=== PATIENT | male | born 1975 | race Caucasian/White ===

== ENCOUNTER 2022-02-27 13:59 | Outpatient (REF) | payer BC, SELFPAY ==
--- NOTE | ~2022-02-27 | MR_ITS ---
EXAMINATION: MR BRAIN WITHOUT AND WITH CONTRAST CLINICAL INFORMATION: Left hearing loss COMPARISON: None TECHNIQUE: Multiplanar multisequence MR imaging of the brain was obtained without and following the administration of 10 mL Gadavist intravenous contrast. FINDINGS: The 7th and 8th cranial nerve complexes are symmetric in course, caliber, and enhancement characteristics. Major inner ear structures including the cochlea, semicircular canals, and vestibule are symmetric in morphology and demonstrate normal CSF signal. No enhancing intracanalicular or cerebellopontine angle mass lesion is visualized. There is no acute infarct on diffusion-weighted imaging. There is no intracranial hemorrhage on iron-sensitive imaging. No extra-axial collection or mass effect/herniation. There are several scattered foci of nonspecific supratentorial white matter T2/FLAIR signal abnormality. No hydrocephalus. The ventricles are normal in morphology and size. No abnormal parenchymal or extra-axial enhancement. The major flow voids at the skull base are preserved. The midline structures are normal. The cerebellar tonsils are normally positioned. The craniocervical junction is normal. Marrow signal is within normal limits. The visualized soft tissues are without significant abnormality. No signal abnormality within the paranasal sinuses or within the mastoid air cells. MR/MR head/brain wo/w con IMPRESSION: 1. No evidence of retrocochlear pathology. 2. Few scattered foci of supratentorial white matter T2/FLAIR signal abnormality are nonspecific but can be seen in the setting of chronic microvascular ischemia or migraine headache.
== END 2022-02-27 14:00 | disposition home or self-care (01) ==
LOC: HO.MRI 13:59
PROVIDERS: Visit Provider Otolaryngology
DX: H90.42 Sensorineural hearing loss, unilateral, left ear, with unrestricted hearing on the contralateral side (principal); D33.3 Benign neoplasm of cranial nerves
CPT/HCPCS: 70553; A9585

== ENCOUNTER 2024-08-07 09:07 | Outpatient (REF) | payer BC, SELFPAY ==
[2024-08-07 13:03] LABS: MANUAL DIFF FLAG NO
[2024-08-07 13:26] LABS: Basophils Percent Auto 0.7 % (0-2); Eosinophils Absolute Auto 0.2 X10*3/uL (0.0-0.4); Eosinophils Percent Auto 2.8 % (0-4); Hematocrit 48.8 % (42.0-52.0); Hemoglobin 16.1 g/dl (14.0-18.0); Imm Gran Abs Auto 0.01 X10*3/uL (0.00-0.03); Imm Gran Pct Auto 0.2 % (0.0-0.4); Lymphocytes Absolute Auto 1.6 X10*3/uL (1.2-4.9); Lymphocytes Percent Auto 28.6 % (20-40); Mean Corpuscular Hemoglobin 28.5 pg (27.0-33.0); Mean Corpuscular Volume 86.5 fL (80.0-98.0); Mean Platelet Volume 10.7 fL (9.4-12.4); Monocytes Absolute Auto 0.5 X10*3/uL (0.1-1.2); Monocytes Percent Auto 9.1 % (2-11); Neutrophils Absolute Auto 3.3 x10*3/uL (2.0-8.3); Neutrophils Percent Auto 58.6 % (45-73); Platelet Count 294 X10*3/uL (160-400); Red Blood Count 5.64 X10*6/uL (4.60-5.80); Red Cell Distribution Width 13.1 % (11.0-16.0); White Blood Count 5.6 X10*3/uL (4.8-10.8)
[2024-08-07 13:29] LABS: Alanine Aminotransferase 23 U/L (0-40); Albumin Level 4.3 g/dL (3.5-5.0); Alkaline Phosphatase 59 U/L (39-117); Anion Gap 14 (12-20); Aspartate Amino Transferase 23 U/L (5-37); Bilirubin Direct 0.1 mg/dL (0.0-0.5); Bilirubin Total 0.4 mg/dL (0.0-1.0); Blood Urea Nitrogen 13 mg/dL (9-16); C Reactive Protein 0.48 mg/dL (< or = 0.50); Calcium 9.3 mg/dL (8.4-10.2); Carbon Dioxide 28 mmol/L (22-29); Chloride 104 mmol/L (96-108); Cholesterol 177 mg/dL (<200); Estimated Glomerular Filt Rate > 60; Glucose Fasting 102 mg/dL (60-99); HDL Cholesterol 37 mg/dL (>40); LDL Cholesterol Calculated 119 mg/dL (<100); Magnesium 2.4 mg/dL (1.6-2.6); Potassium 4.6 mmol/L (3.3-5.1); Sodium 141 mmol/L (135-145); Total Protein 7.7 g/dL (6.5-8.0); Triglycerides 106 mg/dL (<150)
[2024-08-07 13:31] LABS: Estimated Average Glucose 117 mg/dL; Hemoglobin A1C 162.5293 umol/L; Hemoglobin A1c % 5.7 % (<6.0); Total Hemoglobin (HGBA1C) 4176.2217 umol/L
[2024-08-07 13:45] LABS: PSA,Total (Free>4and<10) 2.66 ng/mL (0.00-4.00)
[2024-08-07 13:48] LABS: TSH reflex Free T4 2.21 uIU/mL (0.32-4.0); Vitamin D 25-OH Total 32.1 ng/mL (>30)
[2024-08-07 13:58] LABS: Folate 4.8 ng/mL (> or = 4.0); Vitamin B12 426 pg/mL (200-900)
[2024-08-07 14:14] LABS: Erythrocyte Sedimentation Rate 5 MM/HR (0-15)
== END 2024-08-07 09:08 | disposition home or self-care (01) ==
LOC: HO.HMGCLDS 09:07
PROVIDERS: PCP Internal Medicine; Visit Provider Physician Assistant Medical
DX: Z76.89 Persons encountering health services in other specified circumstances (principal); I10 Essential (primary) hypertension; E66.3 Overweight; G47.33 Obstructive sleep apnea (adult) (pediatric); E78.00 Pure hypercholesterolemia, unspecified; G62.9 Polyneuropathy, unspecified; K64.9 Unspecified hemorrhoids; Z12.5 Encounter for screening for malignant neoplasm of prostate; Z13.1 Encounter for screening for diabetes mellitus
CPT/HCPCS: 36415; 80053; 80061; 80076; 82248; 82306; 82607; 82746; 83036; 83735; 84153; 84443; 85025; 85652; 86140; 96127

== ENCOUNTER 2024-08-07 09:07 | Outpatient (AMB) | payer BC, SELFPAY ==
--- NOTE | 2024-08-07 09:18 | MHC.PC.OV ---
Vital Signs 08/07/24 09:26 Height 6 ft 4 in Weight 229 lb BMI 27.9 BP 144/80 H Respiration 16 Pulse 62 Pulse Source Pulse Oximeter Temp 97.8 F Temp Source Temporal Artery Scan Pulse Oximetry (%) 94 Oxygen Delivery Method Room Air Intake Visit Reasons: establish care Drying Room Supervisor Required: No Accompanied by: Self / Same As Patient Allergies No Known Allergies Allergy (Verified 08/07/24 09:46) Medication List - Last Reconciled 08/07/24 by Angelina Montes PA-C No Known Home Meds Tobacco use date assessed: 08/07/24 Dental Screening Dental Screen Date: 08/07/24 Did you have a dental visit in the last 12 months?: Yes Did you have a dental problem in the last 6 months where you did not have access to dental care?: No Was dental information given to patient?: Patient has dentist HPI establish care HPI Details The patient is a 49-year-old male presenting to [facility], with a primary focus on management of hypertension and hyperlipidemia. He reports elevated blood pressure readings generally above 140 mmHg systolic. Historical data suggests that both cholesterol and blood pressure have been of concern, with the need for updated examinations and possible medical intervention. The patient describes sporadic episodes of blood in stools aligned with bowel straining, positing the possible presence of hemorrhoids. Family history reveals significant cancer occurrence, necessitating preventive screenings. He reports neuropathy-like symptoms in his feet, predominantly at night, suspecting his occupation contributing to the problem, as his work involves wearing high boots. This sensory disturbance is not mentioned to impact daily functionality. Social History - Employment: Full-time at the [employer], occupation involves wearing heavy footwear - Family Status: , discussions inclusive of spouse - Nutrition: Enjoys high-salt and high-fat foods, including fried foods and cheese - Lifestyle: Reports high intake of salty and fatty foods - Risk Factors: Family history of cancer affecting both male and female relatives [facility] Medical History Neuropathy Hemorrhoid Establishing care with new doctor, encounter for Hypercholesteremia Overweight with body mass index (BMI) of 27 to 27.9 in adult Hypertension LOTUS (obstructive sleep apnea) Family History Mother Cancer Stomach cancer BP (high blood pressure) Father Heart attack BP (high blood pressure) Social History Housing: House Alcohol intake: current Alcohol intake frequency: holidays/special occasions only Patient Tobacco Use Status: Never used Tobacco service: No Current occupational status: employed Cognitive needs: No Hearing needs: Yes (left ear hearing aid) Vision needs: Yes (reading glasses) Questionnaire PHQ-9 Over the last 2 weeks, how often have you been bothered by any of the following problems? 1. Little interest or pleasure in doing things: not at all 2. Feeling down, depressed, or hopeless: not at all 3. Trouble falling or staying asleep, or sleeping too much: not at all 4. Feeling tired or having little energy: not at all 5. Poor appetite or overeating: not at all 6. Feeling bad about yourself - or that you are a failure or have let yourself or your family down: not at all 7. Trouble concentrating on things, such as reading the newspaper or watching television: not at all 8. Moving or speaking so slowly that other people could have noticed. Or the opposite - being so fidgety or restless that you have been moving around a lot more than usual: not at all 9. Thoughts that you would be better off or of hurting yourself in some way: not at all Total score: 0 Depression Screening Interpretation: Negative Depression Screening Done: Yes 60283 - PHQ-9 Billing: Yes Source: Developed by Drs. Aguilar Ambrosio, Angely Wadsworth, Francois Barroso and colleagues, with an educational mattie from [employer]. Thrive Questionnaire Date Thrive assessed: 08/07/24 I am a: Patient What is your living situation today?: I have a steady place to live Within the past 12 months, did the food you bought not last and you didn't have the money to get more?: Never true Within the past 12 months, did you worry whether your food would run out before you got money to buy more?: Never true Do you have trouble paying for medicines?: No Do you have trouble getting transportation to medical appointments?: No Do you have trouble paying your heating and electricity bill?: No Do you have trouble taking care of your child, family member or friend?: No Do you have trouble with day-to-day activities such as bathing, preparing meals, shopping, managing finances, etc.?: No Are you currently unemployed and looking for a job?: No Are you interested in more education?: No Please select the resources that you would like help with: None THRIVE Score: 0 AUDIT C Alcohol Use Questionnaire (AUDIT-C) 1. How often do you have a drink containing alcohol?: Monthly or less 2. How many drinks containing alcohol do you have on a typical day when you are drinking?: 1 or 2 3. How often do you have six or more drinks on one occasion?: Never Total Score: 1 Score Reviewed/Action Taken: No SILVINA-7 AMB Questionnaire SILVINA-7 Date SILVINA - 7 assessed: 08/07/24 Feeling nervous, anxious, or on edge: 0 = Not at all Not being able to stop or control worryin = Not at all Worrying too much about different things: 0 = Not at all Trouble relaxin = Not at all Being so restless that it is hard to sit still: 0 = Not at all Becoming easily annoyed or irritable: 0 = Not at all Feeling afraid as if something awful might happen: 0 = Not at all Total SILVINA-7 score (0-4 normal; 5-9 mild; 10-14 moderate; 15-21 severe): 0 Source: Developed by Drs. Aguilar Ambrosio, Angely Wadsworth, Francois Barroso and colleagues, with an educational mattie from [employer]. SILVINA-7 Assessment Billing SILVINA-7 Assessment Tool: SILVINA-7 Assessment 48408 Review of Systems Const Details: - Cardiovascular: Reports elevated blood pressure readings. - Gastrointestinal: Reports intermittent blood in stools; denies black stools or changes in bowel habits. - Respiratory: Denies chest pain or shortness of breath with activity. - Neurological: Reports decreased sensation in extremities, particularly feet. - Renal/Urinary: Denies changes in urination. Physical exam (Primary Care) Vital Signs: Last Vital Signs Temp 97.8 F 08/07/24 09:26 Pulse 62 08/07/24 09:26 Resp 16 08/07/24 09:26 BP 144/80 H 08/07/24 09:26 Pulse Ox 94 08/07/24 09:26 Oxygen Delivery Method Room Air 08/07/24 09:26 Care Plan Goal for BP management: <130/90 patient will be started on lisinopril 10 mg and return in 1 month for blood pressure check with a blood pressure diary BMI result Body Mass Index 27.9 BMI Assessment/Plan discussion: High BMI High, discussed plan: lifestyle, weight reduction, dietary, physical activity and alcohol moderation Tobacco/Smoking Status: Tobacco use Status Tobacco use date assessed 08/07/24 08/07/24 09:20 Patient Tobacco Use Status Never used Tobacco 08/07/24 09:32 PHQ-9: PHQ-9 Score PHQ-9: Total score 0 08/07/24 09:41 Depression Screening Interpretation: Negative Thrive Assessment: Date of Thrive Assessment Date Thrive assessed 08/07/24 08/07/24 09:20 Const Other: Appearance: Alert. Oriented X3. No acute distress. Head: Normal external exam. Normocephalic. Atraumatic. Eyes: Pupils are equal, round, and reactive to light. Extraocular movements intact. Conjunctiva and sclera normal. Eyelids normal. Ears: External auditory canal normal. Tympanic membranes normal. Decreased hearing in the left ear. Throat: Pharynx normal. Uvula midline. Moist mucous membranes. Neck: Normal inspection. Neck supple. Full range of motion. No adenopathy. Thyroid Normal. No meningeal signs. No neck mass noted. Cardiovascular: Normal heart rate and rhythm. Heart sound normal. No murmurs noted. Pulses normal throughout. Blood pressure is 144/80, indicating stage 1 hypertension. Respiratory: No respiratory distress. Painless inspiration. Breath sounds normal. No wheezes/rales/rhonchi noted. Chest nontender. No accessory muscle usage noted or decreased air movement noted. Abdomen: Soft and nontender. Bowel sounds normal in all 4 quadrants. No distention noted. No organomegaly noted. No visible injury noted. Reports occasional blood in stool, likely due to hemorrhoids. Back: No costovertebral angle tenderness. Full range of motion noted. Skin: Skin warm and dry. Normal skin color. Normal skin turgor. No rashes/lesions/lacerations noted. Extremities: No lower extremity edema. Extremities exhibit normal range of motion. Extremities nontender. Reports occasional numbness in toes and heels, possibly neuropathy. Neuro: Oriented X 3. No motor deficit. No sensory deficit. Reflexes normal. Reports occasional numbness in toes and heels, possibly neuropathy. Coding Level of Care Code New Pt Level 4 (39559) Complex EM visit Add On G2211 Diagnoses Establishing care with new doctor, encounter for Z76.89 Hypertension I10 Overweight with body mass index (BMI) of 27 to 27.9 in adult E66.3; Z68.27 LOTUS (obstructive sleep apnea) G47.33 Hypercholesteremia E78.00 Neuropathy G62.9 Hemorrhoid K64.9 Additional Codes SILVINA-7 Assessment Billing - SILVINA-7 Assessment Tool: SILVINA-7 Assessment 97034 ([id number]) PHQ-9 - 72572 - PHQ-9 Billing: Yes ([id number]) Assessment & Plan Assessment & Plan (1) Establishing care with new doctor, encounter for: Code(s): Z76.89 - Persons encountering health services in other specified circumstances Category: Medical (2) Hypertension: Code(s): I10 - Essential (primary) hypertension Category: Medical Plan: The patient will begin lisinopril 10 mg daily, with home monitoring of blood pressure advised. Follow-up in one month will assess treatment impact and adjustment needs. Condition is chronic and stable continue to monitor. (3) Overweight with body mass index (BMI) of 27 to 27.9 in adult: Code(s): E66.3 - Overweight; Z68.27 - Body mass index [BMI] 27.0-27.9, adult Category: Medical Plan: Patient will improve his diet and exercise regimen. Condition is chronic and stable continue to monitor. (4) LOTUS (obstructive sleep apnea): Code(s): G47.33 - Obstructive sleep apnea (adult) (pediatric) Category: Medical Plan: Will order a sleep study test. Condition is chronic and stable continue to monitor. (5) Hypercholesteremia: Code(s): E78.00 - Pure hypercholesterolemia, unspecified Category: Medical Plan: Blood testing will clarify cholesterol status. Dietary changes are recommended focusing on lower salt and fat. A cholesterol-lowering medication may be initiated based on results. Condition is chronic and stable continue to monitor. (6) Neuropathy: Code(s): G62.9 - Polyneuropathy, unspecified Category: Medical Plan: Additional blood tests will ensure diabetic causes are excluded. Symptoms managed by possible gabapentin consideration if symptomatic relief is needed. Condition is chronic and stable will continue to monitor. (7) Hemorrhoid: Code(s): K64.9 - Unspecified hemorrhoids Category: Medical Plan: Initial conservative management recommended includes dietary fiber and fluid increase to manage occasional blood in stool associated with straining. Condition is chronic and stable will continue to monitor. Plan Plan Patient was informed and verbally consented to the use of an ambient scribe for clinic note documentation during this visit. 1. Essential Hypertension The patient will begin lisinopril 10 mg daily, with home monitoring of blood pressure advised. Follow-up in one month will assess treatment impact and adjustment needs. 2. Hyperlipidemia Blood testing will clarify cholesterol status. Dietary changes are recommended focusing on lower salt and fat. A cholesterol-lowering medication may be initiated based on results. 3. Family History Of Cancer Referral to Gastroenterology for a colonoscopy to examine familial cancer risk is planned, supporting early detection and management strategy. 4. Possible Hemorrhoids Initial conservative management recommended includes dietary fiber and fluid increase to manage occasional blood in stool associated with straining. 5. Neuropathy Additional blood tests will ensure diabetic causes are excluded. Symptoms managed by possible gabapentin consideration if symptomatic relief is needed. I discussed with the patient the management of his essential hypertension and proposed beginning lisinopril to lower his blood pressure, explaining its benefits and monitoring plan. Blood tests for hyperlipidemia were ordered to evaluate current cholesterol levels; results will inform any need for pharmacological treatment. We reviewed his family history of cancer, agreeing on a referral for a colonoscopy to explore potential hereditary risks. We explored possible hemorrhoids, with advice on lifestyle changes to aid stool passage. For sensory disturbances in his feet, I highlighted monitoring and possible treatment options post-evaluation. I advised follow-up in one month to re-evaluate blood pressure management and review blood test outcomes. Orders: Orders Complete Blood Count Auto Diff Today Z00.00 - Encounter for general adult medical examination without abnormal findings Hemoglobin A1c Today Z00.00 - Encounter for general adult medical examination without abnormal findings Lipid Panel Today Z00.00 - Encounter for general adult medical examination without abnormal findings Liver Panel Today Z00.00 - Encounter for general adult medical examination without abnormal findings Vitamin D 25-OH Total Today Z00.00 - Encounter for general adult medical examination without abnormal findings Comprehensive [place]. Panel Fast Today Z00.00 - Encounter for general adult medical examination without abnormal findings C Reactive Protein Today Z00.00 - Encounter for general adult medical examination without abnormal findings Erythrocyte Sedimentation Rate Today Z00.00 - Encounter for general adult medical examination without abnormal findings Magnesium Today Z00.00 - Encounter for general adult medical examination without abnormal findings Vitamin B12 and Folate Today Z00.00 - Encounter for general adult medical examination without abnormal findings PSA,Total (Free>4and<10) Today Z00.00 - Encounter for general adult medical examination without abnormal findings TSH reflex Free T4 Today Z00.00 - Encounter for general adult medical examination without abnormal findings RT home sleep study Today G47.33 - Obstructive sleep apnea (adult) (pediatric) Referrals Gastroenterology Referral Z12.11 - Encounter for screening for malignant neoplasm of colon Medications: New lisinopril 10 mg PO DAILY 30 tabs 0RF I10 - Essential (primary) hypertension Patient Instructions: - Begin taking lisinopril 10 mg daily for high blood pressure. - Monitor your blood pressure at home two hours after taking medication and note down the readings. - Schedule a colonoscopy with Gastroenterology as referred. - Increase fiber and fluid intake to ease bowel movements and manage hemorrhoid symptoms. - Have blood tests done as instructed; follow fasting requirements before testing. - Return in one month for a follow-up appointment to review blood pressure and test results.
[2024-08-07 09:26] VITALS: BP 144/80; PULSE 62; RESP 16; TEMP 36.6; O2SAT 94; BMI 27.9
== END 2024-08-07 10:13 | disposition home or self-care (01) ==
LOC: HO.HMCSH 09:07
PROVIDERS: PCP Internal Medicine; Visit Provider Physician Assistant Medical
DX: Z76.89 Persons encountering health services in other specified circumstances (principal); I10 Essential (primary) hypertension; E66.3 Overweight; Z68.27 Body mass index [BMI] 27.0-27.9, adult; G47.33 Obstructive sleep apnea (adult) (pediatric); E78.00 Pure hypercholesterolemia, unspecified; G62.9 Polyneuropathy, unspecified; K64.9 Unspecified hemorrhoids

== ENCOUNTER 2024-09-06 09:26 | Outpatient (AMB) | payer BC, SELFPAY ==
--- NOTE | 2024-09-06 09:40 | MHC.PC.OV ---
Vital Signs 09/06/24 09:41 Height 6 ft 4 in Weight 229 lb BMI 27.9 BP 130/80 Respiration 12 Pulse 72 Pulse Source Pulse Oximeter Temp 97.9 F Temp Source Temporal Artery Scan Pulse Oximetry (%) 99 Oxygen Delivery Method Room Air Intake Visit Reasons: 1 month follow up Physician Office Nurse Required: No Accompanied by: Self / Same As Patient Allergies No Known Allergies Allergy (Verified 09/06/24 10:06) Medication List - Last Reconciled 09/06/24 by Angelina Montes PA-C lisinopril 10 mg PO DAILY rosuvastatin (Crestor) 10 mg PO BEDTIME Tobacco use date assessed: 09/06/24 Dental Screening Dental Screen Date: 08/07/24 HPI 1 month follow up HPI Details The patient is a 49-year-old male presenting with a request for a blood pressure check. He has a history of essential hypertension, currently managed with lisinopril 10 mg, which he has been taking regularly without any adverse effects. His blood pressure is well-controlled, as evidenced by a normal reading during today's visit. The patient has two tablets remaining, indicating a need for a prescription refill. In addition, the patient has hyperlipidemia and is on Crestor (rosuvastatin), with a supply for 90 days. He is making lifestyle modifications, including improved diet and increased physical activity, which may impact his condition management. Social History - Exercises regularly, has started going to the gym. - Reports eating healthier as part of lifestyle modifications. - Employment requires wearing heavy boots and a belt, possibly affecting weight assessment. [facility] Medical History Neuropathy Hemorrhoid Establishing care with new doctor, encounter for Hypercholesteremia Overweight with body mass index (BMI) of 27 to 27.9 in adult Hypertension LOTUS (obstructive sleep apnea) Family History Mother Cancer Stomach cancer BP (high blood pressure) Father Heart attack BP (high blood pressure) Social History Housing: House Alcohol intake: current Alcohol intake frequency: holidays/special occasions only Patient Tobacco Use Status: Never used Tobacco service: No Current occupational status: employed Cognitive needs: No Hearing needs: Yes (left ear hearing aid) Vision needs: Yes (reading glasses) Questionnaire PHQ-9 Over the last 2 weeks, how often have you been bothered by any of the following problems? 1. Little interest or pleasure in doing things: not at all 2. Feeling down, depressed, or hopeless: not at all 3. Trouble falling or staying asleep, or sleeping too much: not at all 4. Feeling tired or having little energy: not at all 5. Poor appetite or overeating: not at all 6. Feeling bad about yourself - or that you are a failure or have let yourself or your family down: not at all 7. Trouble concentrating on things, such as reading the newspaper or watching television: not at all 8. Moving or speaking so slowly that other people could have noticed. Or the opposite - being so fidgety or restless that you have been moving around a lot more than usual: not at all 9. Thoughts that you would be better off or of hurting yourself in some way: not at all Total score: 0 Depression Screening Interpretation: Negative Depression Screening Done: Yes 89403 - PHQ-9 Billing: Yes Source: Developed by Drs. Aguilar Ambrosio, Angely Wadsworth, Francios Barroso and colleagues, with an educational mattie from [employer]. Thrive Questionnaire Date Thrive assessed: 08/07/24 I am a: Patient What is your living situation today?: I have a steady place to live Within the past 12 months, did the food you bought not last and you didn't have the money to get more?: Never true Within the past 12 months, did you worry whether your food would run out before you got money to buy more?: Never true Do you have trouble paying for medicines?: No Do you have trouble getting transportation to medical appointments?: No Do you have trouble paying your heating and electricity bill?: No Do you have trouble taking care of your child, family member or friend?: No Do you have trouble with day-to-day activities such as bathing, preparing meals, shopping, managing finances, etc.?: No Are you currently unemployed and looking for a job?: No Are you interested in more education?: No Please select the resources that you would like help with: None THRIVE Score: 0 AUDIT C Alcohol Use Questionnaire (AUDIT-C) 1. How often do you have a drink containing alcohol?: Monthly or less 2. How many drinks containing alcohol do you have on a typical day when you are drinking?: 1 or 2 3. How often do you have six or more drinks on one occasion?: Never Total Score: 1 Score Reviewed/Action Taken: No SILVINA-7 AMB Questionnaire SILVINA-7 Date SILVINA - 7 assessed: 08/07/24 Feeling nervous, anxious, or on edge: 0 = Not at all Not being able to stop or control worryin = Not at all Worrying too much about different things: 0 = Not at all Trouble relaxin = Not at all Being so restless that it is hard to sit still: 0 = Not at all Becoming easily annoyed or irritable: 0 = Not at all Feeling afraid as if something awful might happen: 0 = Not at all Total SILVINA-7 score (0-4 normal; 5-9 mild; 10-14 moderate; 15-21 severe): 0 Source: Developed by Drs. Aguilar Ambrosio, Angely Wadsworth, Francois Barroso and colleagues, with an educational mattie from [employer]. SILVINA-7 Assessment Billing SILVINA-7 Assessment Tool: SILVINA-7 Assessment 02870 Review of Systems Const Details: - Cardiovascular: Denies any unusual symptoms or side effects from lisinopril. - General: Reports no significant changes in weight, but current weight may be influenced by work apparel. Physical exam (Primary Care) Vital Signs: Last Vital Signs Temp 97.9 F 09/06/24 09:41 Pulse 72 09/06/24 09:41 Resp 12 09/06/24 09:41 BP 130/80 09/06/24 09:41 Pulse Ox 99 09/06/24 09:41 Oxygen Delivery Method Room Air 09/06/24 09:41 Care Plan Goal for BP management: <140/90 at Goal BMI result Body Mass Index 27.9 BMI Assessment/Plan discussion: High BMI High, discussed plan: lifestyle, weight reduction, dietary, physical activity and alcohol moderation Tobacco/Smoking Status: Tobacco use Status Tobacco use date assessed 09/06/24 09/06/24 09:49 Patient Tobacco Use Status Never used Tobacco 09/06/24 09:49 PHQ-9: PHQ-9 Score PHQ-9: Total score 0 09/06/24 09:49 Depression Screening Interpretation: Negative Thrive Assessment: Date of Thrive Assessment Date Thrive assessed 08/07/24 09/06/24 09:49 Const Other: Appearance: Alert. Oriented X3. No acute distress. Head: Normal external exam. Normocephalic. Atraumatic. Eyes: Pupils are equal, round, and reactive to light. Extraocular movements intact. Conjunctiva and sclera normal. Eyelids normal. Throat: Pharynx normal. Uvula midline. Moist mucous membranes. Neck: Normal inspection. Neck supple. Full range of motion. Cardiovascular: Normal heart rate and rhythm. Respiratory: No respiratory distress. Painless inspiration. Back: Full range of motion noted. Skin: Skin warm and dry. Normal skin color. Normal skin turgor. Extremities: Extremities exhibit normal range of motion. Coding Level of Care Code Est Pt Level 3 (45238) Complex EM visit Add On G2211 Diagnoses Hypertension I10 Hypercholesteremia E78.00 Overweight with body mass index (BMI) of 27 to 27.9 in adult E66.3; Z68.27 Additional Codes SILVINA-7 Assessment Billing - SILVINA-7 Assessment Tool: SILVINA-7 Assessment 34560 ([id number]) PHQ-9 - 12721 - PHQ-9 Billing: Yes ([id number]) Assessment & Plan Assessment & Plan (1) Hypertension: Code(s): I10 - Essential (primary) hypertension Category: Medical Plan: Continue lisinopril 10 mg as it is effectively controlling blood pressure. A refill was discussed and provided. Monitor blood pressure regularly, considering lifestyle changes which could lead to medication adjustment. Condition is chronic and stable. (2) Hypercholesteremia: Code(s): E78.00 - Pure hypercholesterolemia, unspecified Category: Medical Plan: Continue Crestor (rosuvastatin) with 90-day supply remaining. Maintain lifestyle changes for lipid management. Follow-up in six months to reassess. Condition is chronic and stable. (3) Overweight with body mass index (BMI) of 27 to 27.9 in adult: Code(s): E66.3 - Overweight; Z68.27 - Body mass index [BMI] 27.0-27.9, adult Category: Medical Plan: Patient to improve diet and exercise regimen. Condition is chronic and stable will continue to monitor. Plan Plan Patient was informed and verbally consented to the use of an ambient scribe for clinic note documentation during this visit. 1. Essential Hypertension Continue lisinopril 10 mg as it is effectively controlling blood pressure. A refill was discussed and provided. Monitor blood pressure regularly, considering lifestyle changes which could lead to medication adjustment. 2. Hyperlipidemia Continue Crestor (rosuvastatin) with 90-day supply remaining. Maintain lifestyle changes for lipid management. Follow-up in six months to reassess. During the visit, I discussed with the patient the effectiveness of his current medication regimen for controlling essential hypertension and managing hyperlipidemia. We reviewed the importance of continuing lisinopril and Crestor and agreed on the necessity of a lisinopril refill. I emphasized the positive impact of lifestyle modifications, such as diet and exercise, on his cardiovascular health. We agreed upon a six-month follow-up to monitor his progress. The patient was informed about monitoring his blood pressure regularly and the potential for reducing medication dosage if lifestyle changes result in improved cardiovascular parameters. Medications: Refilled lisinopril 10 mg PO DAILY 90 tabs 1RF I10 - Essential (primary) hypertension Patient Instructions: - Continue taking lisinopril 10 mg daily. Refill your prescription as needed. - Keep taking Crestor (rosuvastatin) as prescribed. - Maintain a healthy diet and regular exercise routine. - Monitor your blood pressure regularly and contact if there are significant changes. - Follow up in six months for reassessment.
[2024-09-06 09:41] VITALS: BP 130/80; PULSE 72; RESP 12; TEMP 36.6; O2SAT 99; BMI 27.9
== END 2024-09-06 10:02 | disposition home or self-care (01) ==
LOC: HO.HMCSH 09:26
PROVIDERS: PCP Internal Medicine; Visit Provider Physician Assistant Medical
DX: I10 Essential (primary) hypertension (principal); E78.00 Pure hypercholesterolemia, unspecified; E66.3 Overweight; Z68.27 Body mass index [BMI] 27.0-27.9, adult

== ENCOUNTER → 2024-09-06 09:26 | Outpatient (BNVA) | payer BC, SELFPAY | PROVIDERS: PCP Internal Medicine; Visit Provider Physician Assistant Medical | DX: I10 Essential (primary) hypertension (principal); E78.00 Pure hypercholesterolemia, unspecified; E66.3 Overweight; Z68.27 Body mass index [BMI] 27.0-27.9, adult; Z79.899 Other long term (current) drug therapy | CPT/HCPCS: 96127 ==

== ENCOUNTER → 2024-10-16 09:55 | Outpatient (REF) | payer BC, SELFPAY ==
--- NOTE | ~2024-10-16 | XR_ITS ---
EXAMINATION: XR CHEST 2 VIEWS HISTORY: R05.9 - Cough, unspecified COMPARISON: There are no prior studies available for comparison. FINDINGS: PA and lateral views of the chest are submitted. The lungs are expanded and clear. There is no pleural effusion, pneumothorax, or pulmonary vascular congestion. The heart is normal in size. The bones are intact. XR/XR chest 2V IMPRESSION: Clear lungs. Electronically signed by: Aguilar Cota MD 10/16/2024 12:21 PM EDT
== END ==
LOC: HO.SL 09:55
PROVIDERS: PCP Internal Medicine; Visit Provider Physician Assistant Medical
DX: G47.33 Obstructive sleep apnea (adult) (pediatric) (principal); J40 Bronchitis, not specified as acute or chronic
CPT/HCPCS: 71046; 95806; 96127; 98966

== ENCOUNTER → 2024-10-16 10:05 | Outpatient (BNV) | payer BC, SELFPAY | PROVIDERS: PCP Internal Medicine; Visit Provider Internal Medicine | DX: G47.33 Obstructive sleep apnea (adult) (pediatric) (principal) | CPT/HCPCS: 95806 ==

== ENCOUNTER → 2024-10-16 11:35 | Outpatient (BNV) | payer BC, SELFPAY | PROVIDERS: PCP Internal Medicine; Visit Provider Radiology Diagnostic Radiology | DX: R05.9 Cough, unspecified (principal) | CPT/HCPCS: 71046 ==

== ENCOUNTER 2024-10-16 14:30 | Outpatient (AMB) | payer BC, SELFPAY ==
--- NOTE | 2024-10-16 14:31 | A.OFFPC_ITS ---
Intake Visit Reasons: Xray results Allergies No Known Allergies Allergy (Verified 10/16/24 14:41) Medication List - Last Reconciled 10/16/24 by Angelina Montes PA-C amoxicillin-pot clavulanate 875-125 mg 1 tab PO BID 7 days codeine-guaifenesin 10-100 mg/5 mL 5 mL PO Q6H PRN lisinopril 10 mg PO DAILY rosuvastatin (Crestor) 10 mg PO BEDTIME Tobacco use date assessed: 10/16/24 Dental Screening Dental Screen Date: 08/07/24 HPI Xray results HPI Details The patient is a 49-year-old male presenting with a persistent cough and nasal congestion. 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 The patient denies any sputum production, chest pain, or shortness of breath. There is no history of recent travel or exposure to sick contacts. A chest X-ray was performed, which showed no evidence of pneumonia. The patient has not undergone COVID, flu, or RSV testing. The patient was advised to start a course of Augmentin for seven days to treat suspected bronchitis. He was also advised to take a probiotic to mitigate potential gastrointestinal side effects from the antibiotic. Additionally, Robitussin with codeine was recommended to help manage the cough at night. [facility] Medical History (Updated 10/16/24 @ 14:44 by Angelina Montes PA-C) Bronchitis Neuropathy Hemorrhoid Establishing care with new doctor, encounter for Hypercholesteremia Overweight with body mass index (BMI) of 27 to 27.9 in adult Hypertension LOTUS (obstructive sleep apnea) Family History Mother Cancer Stomach cancer BP (high blood pressure) Father Heart attack BP (high blood pressure) Social History Housing: House Alcohol intake: current Alcohol intake frequency: holidays/special occasions only Patient Tobacco Use Status: Never used Tobacco service: No Current occupational status: employed Cognitive needs: No Hearing needs: Yes (left ear hearing aid) Vision needs: Yes (reading glasses) Questionnaire PHQ-9 Over the last 2 weeks, how often have you been bothered by any of the following problems? 1. Little interest or pleasure in doing things: not at all 2. Feeling down, depressed, or hopeless: not at all 3. Trouble falling or staying asleep, or sleeping too much: not at all 4. Feeling tired or having little energy: not at all 5. Poor appetite or overeating: not at all 6. Feeling bad about yourself - or that you are a failure or have let yourself or your family down: not at all 7. Trouble concentrating on things, such as reading the newspaper or watching television: not at all 8. Moving or speaking so slowly that other people could have noticed. Or the opposite - being so fidgety or restless that you have been moving around a lot more than usual: not at all 9. Thoughts that you would be better off or of hurting yourself in some way: not at all Total score: 0 Depression Screening Interpretation: Negative Depression Screening Done: Yes 94548 - PHQ-9 Billing: Yes Source: Developed by Drs. Aguilar Ambrosio, Angely Wadsworth, Francois Barroso and colleagues, with an educational mattie from [employer]. Thrive Questionnaire Date Thrive assessed: 08/07/24 I am a: Patient What is your living situation today?: I have a steady place to live Within the past 12 months, did the food you bought not last and you didn't have the money to get more?: Never true Within the past 12 months, did you worry whether your food would run out before you got money to buy more?: Never true Do you have trouble paying for medicines?: No Do you have trouble getting transportation to medical appointments?: No Do you have trouble paying your heating and electricity bill?: No Do you have trouble taking care of your child, family member or friend?: No Do you have trouble with day-to-day activities such as bathing, preparing meals, shopping, managing finances, etc.?: No Are you currently unemployed and looking for a job?: No Are you interested in more education?: No Please select the resources that you would like help with: None THRIVE Score: 0 AUDIT C Alcohol Use Questionnaire (AUDIT-C) 1. How often do you have a drink containing alcohol?: Monthly or less 2. How many drinks containing alcohol do you have on a typical day when you are drinking?: 1 or 2 3. How often do you have six or more drinks on one occasion?: Never Total Score: 1 Score Reviewed/Action Taken: No SILVINA-7 AMB Questionnaire SILVINA-7 Date SILVINA - 7 assessed: 08/07/24 Feeling nervous, anxious, or on edge: 0 = Not at all Not being able to stop or control worryin = Not at all Worrying too much about different things: 0 = Not at all Trouble relaxin = Not at all Being so restless that it is hard to sit still: 0 = Not at all Becoming easily annoyed or irritable: 0 = Not at all Feeling afraid as if something awful might happen: 0 = Not at all Total SILVINA-7 score (0-4 normal; 5-9 mild; 10-14 moderate; 15-21 severe): 0 Source: Developed by Drs. Aguilar Ambrosio, Angely Wadsworth, Francois Barroso and colleagues, with an educational mattie from [employer]. 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 Denies sputum production, chest pain, or dyspnea. - ENT: Reports nasal congestion in the morning. Physical exam (Primary Care) Tobacco/Smoking Status: Tobacco use Status Tobacco use date assessed 10/16/24 10/16/24 14:33 Patient Tobacco Use Status Never used Tobacco 10/16/24 14:33 PHQ-9: PHQ-9 Score PHQ-9: Total score 0 10/16/24 14:38 Depression Screening Interpretation: Negative Thrive Assessment: Date of Thrive Assessment Date Thrive assessed 08/07/24 10/16/24 14:33 Telehealth Telehealth Telehealth Platform: Telephone Location of provider rendering services: practice address Location of patient: address on file Patient Identification confirmed using: Name, : Yes Telehealth method: voice only Patient verbally consented to treatment: Yes Patient verbally consented to billing insurance company: Yes Patient informed of any privacy concerns related to visit: Yes Minutes spent on Phone/Video with Pt.: 15 Results Reviewed Results Reviewed: Chest x-ray ordered today patient went to the outpatient clinic and chest x-ray within normal limits no evidence of pneumonia. Reviewed. Coding Level of Care Code Tele Est Pt Level 4 (93520) Diagnoses Bronchitis J40 Additional Codes SILVINA-7 Assessment Billing - SILVINA-7 Assessment Tool: SILVINA-7 Assessment 60662 ([id number]) PHQ-9 - 62170 - PHQ-9 Billing: Yes ([id number]) Assessment & Plan Assessment & Plan (1) Bronchitis: Code(s): J40 - Bronchitis, not specified as acute or chronic Category: Medical Plan: The patient will be treated with Augmentin 875 mg twice daily for seven days to address the suspected bronchitis. A probiotic is recommended to prevent antibiotic-associated diarrhea. Robitussin with codeine is prescribed to manage nocturnal cough, with instructions to avoid operating vehicles or machinery while taking the medication. Plan Plan Patient was informed and verbally consented to the use of an ambient scribe for clinic note documentation during this visit. 1. Bronchitis The patient will be treated with Augmentin 875 mg twice daily for seven days to address the suspected bronchitis. A probiotic is recommended to prevent antibiotic-associated diarrhea. Robitussin with codeine is prescribed to manage nocturnal cough, with instructions to avoid operating vehicles or machinery while taking the medication. I discussed with the patient the likely diagnosis of bronchitis and the treatment plan, including the use of Augmentin and Robitussin with codeine. I advised the patient on the potential side effects of the medications, including diarrhea from the antibiotic and drowsiness from the cough syrup. The patient was informed about the importance of taking a probiotic and avoiding driving while on the cough syrup. Follow-up was discussed, and the patient was advised to seek further evaluation if symptoms persist or worsen. Medications: New amoxicillin-pot clavulanate 875-125 mg 1 tab PO BID 14 tabs 0RF 7 days codeine-guaifenesin 10-100 mg/5 mL 5 mL PO Q6H PRN 120 mL 0RF cough Patient Instructions: - Take Augmentin 875 mg twice daily for seven days. - Take a probiotic daily to prevent diarrhea. - Use Robitussin with codeine at night to manage cough, but avoid driving or operating machinery. - Follow up if symptoms persist or worsen.
== END 2024-10-16 14:53 | disposition home or self-care (01) ==
LOC: HO.HMCSH 14:30
PROVIDERS: PCP Internal Medicine; Visit Provider Physician Assistant Medical
DX: J40 Bronchitis, not specified as acute or chronic (principal)

== ENCOUNTER 2024-11-09 13:33 | Outpatient (AMB) | payer BC, SELFPAY ==
[2024-11-09 13:43] VITALS: BP 102/70; PULSE 82; O2SAT 96; BMI 27.5
--- NOTE | 2024-11-09 13:43 | A.OFFVIS_ITS ---
Vital Signs 11/09/24 13:43 Height 6 ft 4 in Weight 225 lb 15.581 oz BMI 27.5 BP 102/70 Blood Pressure Location Lt brachial Position Sitting Pulse 82 Pulse Source Pulse Oximeter Pulse Oximetry (%) 96 Oxygen Delivery Method Room Air Intake Visit Reasons: LOTUS/ Snoring Intake Note: pt is here as a new patient for sleep study follow up, he states daytime fatigue, snores, and he does gasps (witnessed) Deputy Controller Required: No Allergies No Known Allergies Allergy (Verified 11/09/24 14:19) Medication List - Last Reconciled 11/09/24 by Esperanza Rollins MD lisinopril 10 mg PO DAILY rosuvastatin (Crestor) 10 mg PO BEDTIME Do you need a note to return to daycare/school/sports/work: No HPI HPI LOTUS/ Snoring: Details: 49 years old gentleman, a police lieutenant patrol , for [place] . Comes for management of sleep apnea. According to his he has been snoring heavy for the last many years. Lately she has observed him to have respiratory pauses, and snoring has become louder. He does have tendency to fall asleep if he is not physically active, especially in the morning hours and especially if he is watching TV. He is not terribly overweight with BMI of 27 , Sleep study done at home does show that he has moderately severe obstructive sleep apnea , predominantly in supine position. He is being treated for hypertension and hyperlipidemia. Generally in good health. [facility] Medical History (Updated 11/09/24 @ 14:33 by Esperanza Rollins MD) Retrognathia Snoring Bronchitis Neuropathy Hemorrhoid Establishing care with new doctor, encounter for Hypercholesteremia Overweight with body mass index (BMI) of 27 to 27.9 in adult Hypertension LOTUS (obstructive sleep apnea) Family History Mother Cancer Stomach cancer BP (high blood pressure) Father Heart attack BP (high blood pressure) Social History Housing: House Alcohol intake: current Alcohol intake frequency: holidays/special occasions only Patient Tobacco Use Status: Never used Tobacco service: No Current occupational status: employed Cognitive needs: No Hearing needs: Yes (left ear hearing aid) Vision needs: Yes (reading glasses) Review of Systems Const All systems reviewed & are unremarkable except as noted in HPI and below Reports snoring Eyes Reports no additional complaints ENT Reports no additional complaints Card Denies chest pain, Denies syncope, Denies irregular heart rhythm and Denies dyspnea on exertion Resp Denies cough, Denies hemoptysis, Denies dyspnea on exertion, Reports snoring and Denies wheezing GI Reports no additional complaints Reports no additional complaints Musc Reports no additional complaints Skin/Breast Reports system reviewed and no additional complaints, except as documented Neuro Reports no additional complaints and Denies syncope Psych Reports no additional complaints Endo Reports no additional complaints Jose/Lymph Reports no additional complaints Aller/Immun Reports no additional complaints and Denies wheezing Physical Exam Vital Signs: Last Vital Signs Pulse 82 11/09/24 13:43 BP 102/70 11/09/24 13:43 Pulse Ox 96 11/09/24 13:43 Oxygen Delivery Method Room Air 11/09/24 13:43 BMI result Body Mass Index 27.5 Const General: healthy appearing, comfortable, no acute distress, alert and awake Orientation/consciousness: patient oriented x3 HEENT Head: Yes normal to inspection General nose exam: No nasal polyps present and No nasal discharge present Face and sinus: Yes sinuses nontender Mouth: oropharynx abnormals (Crowded and narrow, Mallampati scale 3) Teeth and gingiva: other (Lower jaw, teeth crowded , has retrognathia ,) Throat: Yes posterior oropharynx normal Eyes General: appearance normal, both eyes and all related structures Neck Neck: Yes normal visual inspection, Yes no lymphadenopathy, Yes trachea midline and Yes no JVD Thyroid: Thyroid normal Chest Chest palpation & inspection: normal inspection of the chest, normal palpation of entire chest wall and no tenderness Resp Effort & Inspection: normal respiratory effort Auscultation: clear to auscultation bilaterally, no crackles and no wheezes Cardio Palpation: normal PMI Rate: regular rate Rhythm: regular rhythm Heart sounds: no gallops and no murmurs Peripheral pulses: Peripheral pulses 2+ throughout GI Palpation (GI): Soft to palpation, nontender, No hepatosplenomegaly present and no masses Auscultation: normal bowel sounds Back/Spine/Pelvis Thoracic/Lumbar Spine: thoracic and lumbar spine normal to inspection Skin General skin exam: no rashes or lesions noted Neuro General: patient oriented x3 and no focal motor deficits Cranial nerves: Yes CN's II-XII intact bilaterally Extrem General: Yes normal to inspection, Yes no clubbing, cyanosis or edema and Yes no calf tenderness Psych Appearance: grossly normal and well kempt Speech and movement: Normal speech and movement present Results Reviewed Results Reviewed: Home-based sleep study on 10/16/2024. Total sleep time AHI 24. Supine position AHI 38. And lateral position AHI 3.3 snoring for 30% of the sleep time. 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 Code(s): M26.19 - Other specified anomalies of jaw-cranial base relationship Category: Medical Plan: It his the a fixed, permanent deformity so not correctable at this time. (2) LOTUS (obstructive sleep apnea): Comment: As per home-based sleep study he has moderately severe obstructive sleep apnea, It is mostly in supine position, But he will not be able to comply with position therapy. Code(s): G47.33 - Obstructive sleep apnea (adult) (pediatric) Category: Medical Plan: I explained to him the results of sleep study, because it is moderately severe and he is relatively symptomatic. I think he will be better of using CPAP therapy. Discussed with him about various interfaces and the mechanism of CPAP therapy. He understands well . His 's father and mother both have sleep apnea so they know very well about the use of CPAP. Ordered CPAP with auto PAP mode and pressure setting 6-20 cm, using fullface mask initially. He would need to have close monitoring for compliance and benefits. Coding Level of Care Code New Pt Level 3 (98620) Diagnoses Retrognathia M26.19 LOTUS (obstructive sleep apnea) G47.33
--- OUTSIDE RECORDS SUMMARY | 2024-11-09 13:46 | XMS_ITS | Encounter Summary ---
Author Organization [facility] Address [address] [place] [address] Care Team Providers Care Research Geologist Name Role Phone Name, Priyank COYLE Primary Care Provider [facility] Loree Montoya MD Primary Care Provider [phone] Encounter Details Date Type Department Care Team Description 03/07/2012 Telephone Adult Medicine [address] [address] Name, MD Priyank Social History Tobacco Use Types Packs/Day Years Used Date Smoking Tobacco: Never Alcohol Use Standard Drinks/Week Comments No 0 (1 standard drink = 0.6 oz pur e alcohol) Sex Assigned at Date Recorded Not on file Job Start Date Occupation Industry Not on file Not on file Not on file documented as of this encounter Miscellaneous Notes * Telephone Encounter - Mateus Bobby L.P.N. - 03/07/2012 8:23 AM EST Called patient left message for patient had to Cancell appt today provider called out sick Patient needs to reschedule documented in this encounter Plan of Treatment Not on file documented as of this encounter Visit Diagnoses Not on filedocumented in this encounter Care Teams Research Geologist Relationship Specialty Start Date End Date Name, MD Priyank PCP - General 10/27/06 06/24/14 Loree Montoya MD [address] [place] [address] PCP - General Internal Medicine 06/25/14 documented as of this encounter
== END 2024-11-09 14:20 | disposition home or self-care (01) ==
LOC: HO.HPS 13:34
PROVIDERS: PCP Internal Medicine; Referring Provider Physician Assistant Medical; Visit Provider Internal Medicine
DX: M26.19 Other specified anomalies of jaw-cranial base relationship (principal); G47.33 Obstructive sleep apnea (adult) (pediatric)
CPT/HCPCS: 99203

== ENCOUNTER 2024-12-21 10:46 | Outpatient (AMB) | payer BC, SELFPAY ==
[2024-12-21 10:48] VITALS: BP 128/78; PULSE 93; O2SAT 96; BMI 28.4
--- NOTE | 2024-12-21 10:48 | A.OFFVIS_ITS ---
Vital Signs 12/21/24 10:48 Height 6 ft 4 in Weight 233 lb BMI 28.4 BP 128/78 Blood Pressure Location Rt brachial Position Sitting Pulse 93 Pulse Source Pulse Oximeter Pulse Oximetry (%) 96 Oxygen Delivery Method Room Air Intake Visit Reasons: LOTUS/Snoring Intake Note: Patient is here for a follow up on LOTUS Allergies No Known Allergies Allergy (Verified 12/21/24 11:11) Medication List - Last Reconciled 12/21/24 by Esperanza Rollins MD lisinopril 10 mg PO DAILY rosuvastatin (Crestor) 10 mg PO BEDTIME Do you need a note to return to daycare/school/sports/work: No HPI HPI LOTUS/Snoring: Details: This 49 years old gentleman is here for follow-up after starting to use the CPAP. He has been using his CPAP very regularly, has noticed a great improvement in his sleep integrity and quality. ( like day and night and no snoring ) He is struggling to find the right fit for the mask. The nasal mask was not comfortable. Now he has large face mask but it goes over the nose and it is uncomfortable. So after using for about 4 hours he usually pulls it off. He wakes up refreshed and denies any daytime sleepiness. [facility] Medical History Retrognathia Snoring Bronchitis Neuropathy Hemorrhoid Establishing care with new doctor, encounter for Hypercholesteremia Overweight with body mass index (BMI) of 27 to 27.9 in adult Hypertension LOTUS (obstructive sleep apnea) Family History Mother Cancer Stomach cancer BP (high blood pressure) Father Heart attack BP (high blood pressure) Social History Housing: House Alcohol intake: current Alcohol intake frequency: holidays/special occasions only Patient Tobacco Use Status: Never used Tobacco service: No Current occupational status: employed Cognitive needs: No Hearing needs: Yes (left ear hearing aid) Vision needs: Yes (reading glasses) Review of Systems Const All systems reviewed & are unremarkable except as noted in HPI and below Reports snoring Eyes Reports no additional complaints ENT Reports no additional complaints Card Denies chest pain, Denies syncope, Denies irregular heart rhythm and Denies dyspnea on exertion Resp Denies cough, Denies hemoptysis, Denies dyspnea on exertion, Reports snoring and Denies wheezing GI Reports no additional complaints Reports no additional complaints Musc Reports no additional complaints Skin/Breast Reports system reviewed and no additional complaints, except as documented Neuro Reports no additional complaints and Denies syncope Psych Reports no additional complaints Endo Reports no additional complaints Jose/Lymph Reports no additional complaints Aller/Immun Reports no additional complaints and Denies wheezing Physical Exam Vital Signs: Last Vital Signs Pulse 93 12/21/24 10:48 BP 128/78 12/21/24 10:48 Pulse Ox 96 12/21/24 10:48 Oxygen Delivery Method Room Air 12/21/24 10:48 BMI result Body Mass Index 28.4 Const General: healthy appearing, comfortable, no acute distress, alert and awake Orientation/consciousness: patient oriented x3 HEENT Head: Yes normal to inspection General nose exam: No nasal polyps present and No nasal discharge present Face and sinus: Yes sinuses nontender Mouth: oropharynx abnormals (Crowded and narrow, Mallampati scale 3) Teeth and gingiva: other (Lower jaw, teeth crowded , has retrognathia ,) Throat: Yes posterior oropharynx normal Eyes General: appearance normal, both eyes and all related structures Neck Neck: Yes normal visual inspection, Yes no lymphadenopathy, Yes trachea midline and Yes no JVD Thyroid: Thyroid normal Chest Chest palpation & inspection: normal inspection of the chest, normal palpation of entire chest wall and no tenderness Resp Effort & Inspection: normal respiratory effort Auscultation: clear to auscultation bilaterally, no crackles and no wheezes Cardio Palpation: normal PMI Rate: regular rate Rhythm: regular rhythm Heart sounds: no gallops and no murmurs Peripheral pulses: Peripheral pulses 2+ throughout GI Palpation (GI): Soft to palpation, nontender, No hepatosplenomegaly present and no masses Auscultation: normal bowel sounds Back/Spine/Pelvis Thoracic/Lumbar Spine: thoracic and lumbar spine normal to inspection Skin General skin exam: no rashes or lesions noted Neuro General: patient oriented x3 and no focal motor deficits Cranial nerves: Yes CN's II-XII intact bilaterally Extrem General: Yes normal to inspection, Yes no clubbing, cyanosis or edema and Yes no calf tenderness Psych Appearance: grossly normal and well kempt Speech and movement: Normal speech and movement present Results Reviewed Results Reviewed: The compliance report for the last 30 nights shows that he has used 27/30 nights, 90%. Average use it per night 4 hours 49 minutes. There is no air leak and residual AHI 1.8. 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 Code(s): M26.19 - Other specified anomalies of jaw-cranial base relationship Category: Medical Plan: He knows about this malformation. It is a permanent defect, and he is going to need using the CPAP permanently . (2) LOTUS (obstructive sleep apnea): Comment: Since his last visit he is using the CPAP very regularly, and is benefiting. He describes the difference in his sleep as day and night. No snoring and he wakes up refreshed . He has issues with the fitting of the mask. Would like to try F 30 , full face mask . Code(s): G47.33 - Obstructive sleep apnea (adult) (pediatric) Category: Medical Plan: Patient is commended for good compliance, we talked about various masks . Will send order for F30, mask with soft lining, and it will probably be more comfortable so that he can use for longer hours. Coding Level of Care Code Est Pt Level 3 (11873) Diagnoses Retrognathia M26.19 LOTUS (obstructive sleep apnea) G47.33
== END 2024-12-21 11:20 | disposition home or self-care (01) ==
LOC: HO.HPS 10:47
PROVIDERS: PCP Internal Medicine; Visit Provider Internal Medicine
DX: M26.19 Other specified anomalies of jaw-cranial base relationship (principal); G47.33 Obstructive sleep apnea (adult) (pediatric)
CPT/HCPCS: 99213

== ENCOUNTER 2025-01-10 16:12 | Outpatient (AMB) | payer BC, SELFPAY ==
--- NOTE | 2025-01-10 16:13 | MHC.OFFVIS ---
Vital Signs 01/10/25 16:14 Height 6 ft 4 in Weight 227 lb BMI 27.6 BP 112/78 Blood Pressure Location Rt brachial Position Sitting Pulse 88 Pulse Source Pulse Oximeter Pulse Oximetry (%) 96 Oxygen Delivery Method Room Air Intake Visit Reasons: colo screening Intake Note: New pt for initial colo screening. CC: Pt denies any GI sx or concerns at this time. No pertinent surgical or FMHx. Bed Placement Coordinator Required: No Accompanied by: Self / Same As Patient Allergies No Known Allergies Allergy (Verified 01/10/25 16:14) HPI HPI colo screening: Details: 49 year old? male with past medical history of hypercholesteremia, hypertension, LOTUS is here today for pre colonoscopy screening.? Patient was sent to us by his PCP.? This is his first colonoscopy screening.? Patient denies any gastrointestinal symptoms in the past or at present.? Denies any personal or family history of gastrointestinal disease, colon polyps, or CRC.? Patient never had anesthesia in the past. Recently diagnosed with sleep apnea using CPAP.? Denies any history of cardiac, renal, pulmonary, or hepatic disease.?? No history of infectious? diseases like hepatitis A, B, C, HIV or tuberculosis.? Patient is not on any anticoagulation [facility] Medical History Retrognathia Snoring Bronchitis Neuropathy Hemorrhoid Establishing care with new doctor, encounter for Hypercholesteremia Overweight with body mass index (BMI) of 27 to 27.9 in adult Hypertension LOTUS (obstructive sleep apnea) Family History Mother Cancer Stomach cancer BP (high blood pressure) Father Heart attack BP (high blood pressure) Social History Housing: House Alcohol intake: current Alcohol intake frequency: holidays/special occasions only Patient Tobacco Use Status: Never used Tobacco service: No Current occupational status: employed Cognitive needs: No Hearing needs: Yes (left ear hearing aid) Vision needs: Yes (reading glasses) Review of Systems Const Denies weight gain and Denies weight loss ENT Reports no additional complaints, Denies dysphagia and Denies odynophagia Card Reports no additional complaints Resp Reports no additional complaints GI Denies abdominal pain, Denies belching, Denies melena, Denies bloating, Denies change in bowel habits, Denies dysphagia, Denies excessive flatus, Denies dyspepsia, Denies heartburn, Denies diarrhea, Denies loose stools, Denies nausea, Denies odynophagia and Denies vomiting Reports no additional complaints Musc Reports no additional complaints Neuro Reports no additional complaints Psych Reports no additional complaints Endo Reports no additional complaints Physical Exam Const General: healthy appearing, no acute distress and well developed Nutritional Appearance: well nourished Orientation/consciousness: patient oriented x3 Resp Effort & Inspection: normal respiratory effort, able to speak in complete sentences, no tracheal deviation and symmetric chest movement Auscultation: clear to auscultation bilaterally Cardio Rate: regular rate GI Inspection: Yes normal to inspection and No distended Palpation (GI): Soft to palpation, not firm, nontender and No hepatosplenomegaly present Auscultation: normal bowel sounds General: Yes no CVA tenderness Back/Spine/Pelvis Back: no CVA tenderness Skin General skin exam: elasticity normal, turgor normal and dry skin Neuro General: patient oriented x3 Psych Appearance: grossly normal Mental Status: mental status grossly normal Assessment & Plan Assessment & Plan (1) Screen for colon cancer: Code(s): Z12.11 - Encounter for screening for malignant neoplasm of colon Plan: Patient denies any GI, cardiac or respiratory symptoms.? Patient never had a anesthesia in the past.? Recently diagnosed with sleep apnea, using CPAP.? No history infectious diseases in the past or present.? Not on any anticoagulation therapy.? No family or personal history of colon cancer or polyps.? Patient denies melena, hematochezia, unintentional weight loss or ribbon like stools.? Discussed at length the pre-procedure,? prep, diet & medications as well as what to expect prior, during and after the procedure.?? Stressed the importance of good bowel prep.? Recommended the use of Vaseline or Calmoseptine OTC & baby wipes with bowel movements to promote comfort.? ?Patient verbalizes understanding and agrees to plan of care.? He was given the opportunity to ask questions and all questions answered.? We will see him after the procedure.? Orders: Referrals GI Procedure Notification Z12.11 - Encounter for screening for malignant neoplasm of colon Medications: New bisacodyl (Dulcolax (bisacodyl)) take 4 tabs at noon the day before your colonoscopy 20 mg (4 x 5 mg) PO ONCE 4 tabs 0RF constipation 1 day Z12.11 - Encounter for screening for malignant neoplasm of colon polyethylene glycol 3350 (Miralax) As directed by gastroenterology department at [facility] 238 grams PO ONCE 238 grams 0RF Z12.11 - Encounter for screening for malignant neoplasm of colon Coding Level of Care Code New Pt Level 3 (36143) Diagnoses Screen for colon cancer Z12.11 Time Spent (min) 40 Comment 30 minutes spent with patient and additional 10 minutes spent reviewing his records
[2025-01-10 16:14] VITALS: BP 112/78; PULSE 88; O2SAT 96; BMI 27.6
--- OUTSIDE RECORDS SUMMARY | 2025-01-10 16:39 | XMS_ITS | Encounter Summary ---
Author Organization [facility] Address [address] [place] [address] Care Team Providers Care Copy Chaser Name Role Phone Loree Montoya MD Primary Care Provider [phone] Encounter Details Date Type Department Care Team Description 05/10/2019 Release of Information Medical Records [address] [place] [id number] Abstract, Provider Social History Tobacco Use Types Packs/Day Years Used Date Smoking Tobacco: Never Alcohol Use Standard Drinks/Week Comments No 0 (1 standard drink = 0.6 oz pur e alcohol) a few beers every a few weeks Sex Assigned at Date Recorded Not on file Job Start Date Occupation Industry Not on file Not on file Not on file documented as of this encounter Plan of Treatment Not on file documented as of this encounter Visit Diagnoses Not on filedocumented in this encounter Care Teams Copy Chaser Relationship Specialty Start Date End Date Loree Montoya MD [address] [place] [id number] PCP - General Internal Medicine 06/25/14 documented as of this encounter
--- OUTSIDE RECORDS SUMMARY | 2025-01-10 16:39 | XMS_ITS | Clinical Summary ---
Author Organization [facility] Address [address] [place] [address] Care Team Providers Care Wood Sash And Frame Carpenter Name Role Phone Loree Montoya MD Primary Care Provider [phone] Allergies No known active allergies Medications Medication Sig Dispensed Refills Start Date End Date Status ALBUTEROL SULFATE 108 (90 Base) MCG/ACT Aero Soln Inhale 2 Puffs into the lungs every 4 hours as needed for Cough or Wheezing. 1 Inhaler 1 2019 Active Cholecalciferol (Vitamin D) 50 MCG (2000 UT) Tab Take 1 Tablet by mouth daily. 90 Tablet 4 04/16/2023 Active Active Problems Problem Noted Date Family history of colon cancer 4 Family history of early CAD 09/19/2014 NO ACTIVE MEDICAL PROBLEMS 03/15/2010 Resolved Problems Problem Noted Date Resolved Date Heartburn 11/09/2006 11/09/2006 Immunizations Name Administration Dates Next Due COVID-19 (Moderna) 06/20/2020,05/23/2020 Influenza (> 6 Months) 12/26/2008 Influenza Flu (PT Reported) 02/08/2023 Tdap 09/19/2014 Family History Medical History Relation Name Comments [place] Father at age 45, CABG Hypertension Maternal Grandmother Hypertension Mother ovarian ca [Other] Mother [place] Paternal Grandfather fr om [place] at age 70 Relation Name Status Comments Brother Alive Father Alive HTN, [place] at age 45 Maternal Grandmother Mother Alive Paternal Grandfather Sister Alive Social History Tobacco Use Types Packs/Day Years Used Date Smoking Tobacco: Never Tobacco Cessation:Counseling Given: Not Answered Alcohol Use Standard Drinks/Week Comments No 0 (1 standard drink = 0.6 oz pur e alcohol) a few beers every a few weeks Sex Assigned at Date Recorded Not on file Job Start Date Occupation Industry Not on file Not on file Not on file Last Filed Vital Signs Vital Sign Reading Time Taken Comments Blood Pressure 138/80 04/14/2023 11:50 AM EST Pulse 81 04/14/2023 11:27 AM EST Temperature 36.9 C (98.4 F) 04/14/2023 11:27 AM EST Respiratory Rate 20 04/14/2023 11:27 AM EST Oxygen Saturation 98% 04/18/2013 4:16 PM EST Inhaled Oxygen Concentration - - Weight 104.8 kg (231 lb) 04/14/2023 11:27 AM EST Height 193 cm (6' 4 ) 05/05/2023 3:05 PM EST Body Mass Index 28.12 04/14/2023 11:27 AM EST Plan of Treatment Health Maintenance Due Date Last Done Comments BMI CHECK/ADVISE 04/12/2024 05/05/2023, 06/2023, 04/14/2023 (Completed), Additional history exists COLON CANCER SCREENING 2024 SHINGLES VACCINE (1 of 2) 2024 DTAP/TDAP/TD (2 - Td or Tdap) 09/19/2024 09/19/2014 Covid-19 Vaccine (3 - 2022-2 4 season) 2024 06/20/2020, 05/23/2020 INFLUENZA (#1) 2024 02/08/2023, 12/26/2008 TOBACCO CHECK/ADVISE 04/14/2025 04/14/2023 (Complete d) BASELINE HEALTH EXAM 40-64 05/05/202505/05, 09/19/2014, 11/09/2006 CHOLESTEROL SCREENING 04/15/2028 04/15/2023 PNEUMOCOCCAL VACCINE FOR HIG H RISK PATIENTS (#1) 07/12/2039 Care Teams Wood Sash And Frame Carpenter Relationship Specialty Start Date End Date Loree Montoya MD [address] [place] [id number] PCP - General Internal Medicine 06/25/14
== END 2025-01-10 16:30 | disposition home or self-care (01) ==
LOC: HO.HGI 16:13
PROVIDERS: PCP Internal Medicine; Visit Provider Nurse Practitioner Family
DX: Z01.818 Encounter for other preprocedural examination (principal); Z12.11 Encounter for screening for malignant neoplasm of colon
CPT/HCPCS: S0285

== ENCOUNTER 2025-02-21 11:32 | Day surgery (SDC) | payer BC, SELFPAY ==
--- NOTE | 2025-02-19 10:36 | P.CONAN_ITS ---
Documented by User: Monika Perkins NP 02/19/25 10:36 HPI - Anesthesia Eval Consult details Narrative: 49 yr old male for colonoscopy LOTUS: on CPAP, [facility] Problems Active Problems: All Active Problems Retrognathia (Acute) Snoring (Acute) Bronchitis (Acute) Neuropathy (Acute) Hemorrhoid (Acute) Establishing care with new doctor, encounter for (Acute) Hypercholesteremia (Acute) Overweight with body mass index (BMI) of 27 to 27.9 in adult (Acute) Hypertension (Acute) LOTUS (obstructive sleep apnea) (Acute) Past Medical History Medical History Retrognathia Snoring Bronchitis Neuropathy Hemorrhoid Establishing care with new doctor, encounter for Hypercholesteremia Overweight with body mass index (BMI) of 27 to 27.9 in adult Hypertension LOTUS (obstructive sleep apnea) Family History Family History Mother Cancer Stomach cancer BP (high blood pressure) Father Heart attack BP (high blood pressure) Surgical History Surgical History No pertinent past surgical history Social History Social History Housing: House Alcohol intake: current Alcohol intake frequency: holidays/special occasions only Patient Tobacco Use Status: Never used Tobacco Use of substances other than those prescribed or required for medical reasons: No Are you DNR?: No Advance Directives: No Advance Directives Information Provided: Yes service: No Current occupational status: employed Cognitive needs: No Hearing needs: Yes (left ear hearing aid) Vision needs: Yes (reading glasses) Meds Allergies Allergy/AdvReac Type Severity Reaction Status Date / Time No Known Allergies Allergy Verified 02/21/25 11:54 Documented by User: Mita Mccrary MD 02/21/25 14:18 [facility] Past Medical History Medical History Retrognathia Snoring Bronchitis Neuropathy Hemorrhoid Establishing care with new doctor, encounter for Hypercholesteremia Overweight with body mass index (BMI) of 27 to 27.9 in adult Hypertension LOTUS (obstructive sleep apnea) Family History Family History Mother Cancer Stomach cancer BP (high blood pressure) Father Heart attack BP (high blood pressure) Surgical History Surgical History No pertinent past surgical history History of Problems with Anesthesia: No Social History Social History Housing: House Alcohol intake: current Alcohol intake frequency: holidays/special occasions only Patient Tobacco Use Status: Never used Tobacco Use of substances other than those prescribed or required for medical reasons: No Are you DNR?: No Advance Directives: No Advance Directives Information Provided: Yes service: No Current occupational status: employed Cognitive needs: No Hearing needs: Yes (left ear hearing aid) Vision needs: Yes (reading glasses) Meds Allergies Allergy/AdvReac Type Severity Reaction Status Date / Time No Known Allergies Allergy Verified 02/21/25 11:54 Exam Airway Mallampati Class: III TM Dist: >3cm Neck ROM: Full Loose/Missing/Broken Teeth: No Heart: RRR Lungs: CTA Assessment and Plan Assessment Anesthesia Assessment: Anesthesia Plan Discussed and Chart Reviewed Final Anesthetic Review History of Problems with Anesthesia: No NPO: Yes ASA Class: II Final Preanesthetic Review: Meds/Allgs Chart Reviewed, Consent Obtained/Reviewed and Anes Risks/Benef Reviewed Patient Risk: Low Procedure Risk: Low Anesthetic Plan Anesthetic Plan: MAC: Disposition: Standard PACU
[2025-02-21 11:57] VITALS: BMI 26.3
[2025-02-21 12:03] VITALS: BP 129/86; PULSE 78; RESP 14; TEMP 36.5; O2SAT 97
[2025-02-21] MEDS: Lactated Ringers 1,000 ML 100 ML IVCONT (12:10)
--- NOTE | 2025-02-21 14:20 | MHC.SHP ---
Pre-Procedural Eval Section A - 24 Hr Update-Section A only Date of Service: 02/21/25 Section B - Complete if H&P > 30 days Chief Complaint: screening Relevant Family History (Specify if Yes): No Relevant Social History: None Present Medications: see Short Stay Collaborative assessment Medical History: Significant History (Retrognathia Snoring Bronchitis Neuropathy Hemorrhoid e Hypercholesteremia Overweight with body mass index (BMI) of 27 to 27.9 in adult Hypertension LOTUS (obstructive sleep apnea)) History of Previous Operations: No relevant previous surgery Allergies: Allergies Allergy/AdvReac Type Severity Reaction Status Date / Time No Known Allergies Allergy Verified 02/21/25 11:54 Review of Systems Sugical H&P ROS: Negative: Constitution, Cardiovascular, Respiratory, Neurological, Psychiatric, Hem-Onc, Allergic/Immunologic, Gastrointestinal, Genitourinary, Musculoskeletal, Integumentary, Endocrine and Eyes/Ears/Nose/Throat Exam Surgical H&P Exam: Normal: HEENT, Normal: Heart, Normal: Lungs, Normal: Extremities, Normal: Abdomen, Normal: Skin and Normal: Neurological Plan Diagnosis/Plan: Unchanged I have reviewed the history and physical and performed a pertinent physical examination on my patient. No changes have occurred unless specified. Time Spent With Patient Time: Total time managing care of this patient today ____ minutes.
--- NOTE | 2025-02-21 15:00 | HO.OPN-COLON ---
Colonoscopy Operative Note Operative Note Date of Service: 02/21/25 Narrative: Operative Information Procedure Description: Colonoscopy Indication: Screening Anesthesia: MAC COLONOSCOPY Instrument: Olympus variable stiffness pediatric scope 190L Colonoscopy Monitoring: Vital signs and clinical assessment, continuous EKG monitoring, Pulse oximetry, Carbon Dioxide monitoring and blood pressure monitoring were done throughout the procedure. Colon withdrawal time was 8 minutes. Procedure: The patient was placed in the left lateral decubitis position and pre-procedure medications were administered. After a digital rectal examination of the ano-rectum, the video colonoscope was inserted into the rectum and advanced through the colon to the cecum/TI. The colonoscope was slowly withdrawn in a retrograde panoramic fashion and the colon mucosa was carefully examined including a retroflexed view of the rectum. Findings and interventions are described below. Procedure Difficulty: easy Findings: Terminal Ileum-normal Cecum:normal Ascending Colon: normal Transverse Colon -normal Descending Colon:normal Sigmoid Colon: normal Rectum: Retroflexion with medium sized internal hemorrhoids seen, grade I, 10 mm sessile polyp removed with cold snare and x 1 clip applied for hemostasis Anorectum - normal Intervention: cold snare Colon preparation: [place] Bowel Preparation Scale Right colon; 2 Transverse colon: 2 Left colon; 2 (0 = Unprepared colon segment with mucosa not seen due to solid stool that cannot be cleared. 1 = Portion of mucosa of the colon segment seen, but other areas of the colon segment not well seen due to staining, residual stool and/or opaque liquid. 2 = Minor amount of residual staining, small fragments of stool and/or opaque liquid, but mucosa of colon segment seen well. 3 = Entire mucosa of colon segment seen well with no residual staining, small fragments of stool or opaque liquid) Impression and Post Procedure Diagnosis: colon polyp x 1 internal hemorrhoids Plan: High fiber diet leaflet Avoid straining at stool, epsom salts and sitz bath, anusol supps or cream Repeat Colonoscopy in 3-4 years due to polyp or earlier if clinically indicated Above findings were reviewed with the patient and relevant handouts were provided if indicated.
[2025-02-21 15:02] VITALS: BP 106/70; PULSE 83; RESP 16; TEMP 36.8; O2SAT 95
[2025-02-21 15:17] VITALS: BP 119/84; PULSE 84; RESP 18; TEMP 36.6; O2SAT 97
== END 2025-02-21 15:48 | disposition home or self-care (01) ==
PROVIDERS: PCP Physician Assistant Medical; Visit Provider Internal Medicine Gastroenterology
PROC: 0DJD8ZZ Inspection of Lower Intestinal Tract, Via Natural or Artificial Opening Endoscopic (ICD-10-PCS; CPT 45378; principal; 2025-02-21 15:20)
DX: Z12.11 Encounter for screening for malignant neoplasm of colon (principal); Z80.0 Family history of malignant neoplasm of digestive organs; K64.0 First degree hemorrhoids; D12.7 Benign neoplasm of rectosigmoid junction
CPT/HCPCS: 45385; 45382; 88305; J2704

== ENCOUNTER → 2025-02-21 11:32 | Outpatient (BNV) | payer BC, SELFPAY | PROVIDERS: PCP Physician Assistant Medical; Visit Provider Internal Medicine Gastroenterology | DX: Z12.11 Encounter for screening for malignant neoplasm of colon (principal); K63.5 Polyp of colon; K64.8 Other hemorrhoids | CPT/HCPCS: 45385 ==

== ENCOUNTER 2025-03-12 14:16 | Outpatient (AMB) | payer BC, SELFPAY ==
[2025-03-12 14:23] VITALS: BP 110/58; PULSE 107; TEMP 36.2; O2SAT 95; BMI 27.5
--- NOTE | 2025-03-12 14:23 | MHC.PC.OV ---
Vital Signs 03/12/25 14:23 Height 6 ft 4 in Weight 226 lb 0.8 oz BMI 27.5 BP 110/58 L Blood Pressure Location Rt brachial Pulse 107 H Pulse Source Pulse Oximeter Temp 97.1 F Pulse Oximetry (%) 95 Intake Visit Reasons: annual PE Intake Note: no issues just had a colonoscopy said to go back in three years. Allergies No Known Allergies Allergy (Verified 03/12/25 15:58) Medication List - Last Reconciled 03/12/25 by Angelina Montes PA-C lisinopril 10 mg PO DAILY rosuvastatin (Crestor) 10 mg PO BEDTIME Tobacco use date assessed: 10/16/24 Dental Screening Dental Screen Date: 03/12/25 Did you have a dental visit in the last 12 months?: Yes Did you have a dental problem in the last 6 months where you did not have access to dental care?: No Was dental information given to patient?: Patient has dentist HPI HPI Comments History of Present Illness Details History of Present Illness The patient is a 49 year old individual presenting for an annual physical examination. Labs from July showed a normal CBC without anemia, negative inflammatory markers, and normal kidney function. At today's visit, the patient's blood pressure was well-controlled, but the heart rate was fast, which was attributed to recent physical activity. The patient has a history of hypertension and is managed on lisinopril 10 mg. The patient's blood pressure has improved, which is thought to be related to the use of a CPAP machine and a recent weight loss of about 4-5 pounds since October. The patient reports no chest pain or shortness of breath with activity. Regarding metabolic health, a fasting glucose from July was elevated at 117, classifying the patient as prediabetic, though the A1c was 5.1. Lipid panel from July showed total cholesterol of 177, LDL of 119, and triglycerides of 106. The patient is on a statin and reports that more recent labs from the [place] showed cholesterol levels were normal. The patient had a recent colonoscopy where a 10 mm polyp was discovered and removed. The pathology report was negative for cancer, but due to the size of the polyp, a repeat colonoscopy is recommended in 3-4 years. The patient was diagnosed with obstructive sleep apnea and started using a CPAP machine four months ago. Since then, the patient reports feeling much better, having more energy, and no longer needing to nap during the day. The patient also notes that symptoms of tingling in the feet, which occurred mostly at night, have been less frequent since starting CPAP therapy. There is a significant family history of heart disease; the patient's father had a bypass surgery around age 49, and the patient's brother also has heart problems. There is also a family history of various cancers, including a rare stomach cancer in the patient's mother. Social History - Diet: Reports having a sweet tooth and consuming items such as pasta, breads, and crackers. - Activity Level: Describes recent activity including putting up [employer] lights for several hours. - Weight Management: The patient has lost approximately 4-5 pounds since October, and reports that pants are looser. [facility] Medical History (Updated 03/12/25 @ 16:03 by Angelina Montes PA-C) Peripheral neuropathy Family history of cardiovascular disease Colonic polyp Prediabetes Annual physical exam Skin lesion Freckles Tachycardia Heart murmur Retrognathia Snoring Bronchitis Neuropathy Hemorrhoid Establishing care with new doctor, encounter for Hypercholesteremia Overweight with body mass index (BMI) of 27 to 27.9 in adult Hypertension LOTUS (obstructive sleep apnea) Surgical History History of colonoscopy (~02/21/25) Family History Mother Cancer Stomach cancer BP (high blood pressure) Father Heart attack BP (high blood pressure) Social History Housing: House Alcohol intake: current Alcohol intake frequency: holidays/special occasions only Patient Tobacco Use Status: Never used Tobacco service: No Current occupational status: employed Cognitive needs: No Hearing needs: Yes (left ear hearing aid) Vision needs: Yes (reading glasses) Questionnaire PHQ-9 Over the last 2 weeks, how often have you been bothered by any of the following problems? 1. Little interest or pleasure in doing things: not at all 2. Feeling down, depressed, or hopeless: not at all 3. Trouble falling or staying asleep, or sleeping too much: not at all 4. Feeling tired or having little energy: not at all 5. Poor appetite or overeating: not at all 6. Feeling bad about yourself - or that you are a failure or have let yourself or your family down: not at all 7. Trouble concentrating on things, such as reading the newspaper or watching television: not at all 8. Moving or speaking so slowly that other people could have noticed. Or the opposite - being so fidgety or restless that you have been moving around a lot more than usual: not at all 9. Thoughts that you would be better off or of hurting yourself in some way: not at all Total score: 0 Depression Screening Interpretation: Negative Depression Screening Done: Yes 92981 - PHQ-9 Billing: Yes Source: Developed by Drs. Aguilar Ambrosio, Angely Wadsworth, Francois Barroso and colleagues, with an educational mattie from [email or web address]. Thrive Questionnaire Date Thrive assessed: 08/07/24 I am a: Patient What is your living situation today?: I have a steady place to live Within the past 12 months, did the food you bought not last and you didn't have the money to get more?: Never true Within the past 12 months, did you worry whether your food would run out before you got money to buy more?: Never true Do you have trouble paying for medicines?: No Do you have trouble getting transportation to medical appointments?: No Do you have trouble paying your heating and electricity bill?: No Do you have trouble taking care of your child, family member or friend?: No Do you have trouble with day-to-day activities such as bathing, preparing meals, shopping, managing finances, etc.?: No Are you currently unemployed and looking for a job?: No Are you interested in more education?: No Please select the resources that you would like help with: None THRIVE Score: 0 AUDIT C Alcohol Use Questionnaire (AUDIT-C) 1. How often do you have a drink containing alcohol?: Monthly or less 2. How many drinks containing alcohol do you have on a typical day when you are drinking?: 1 or 2 3. How often do you have six or more drinks on one occasion?: Never Total Score: 1 Score Reviewed/Action Taken: No SILVINA-7 AMB Questionnaire SILVINA-7 Date SILVINA - 7 assessed: 08/07/24 Feeling nervous, anxious, or on edge: 0 = Not at all Not being able to stop or control worryin = Not at all Worrying too much about different things: 0 = Not at all Trouble relaxin = Not at all Being so restless that it is hard to sit still: 0 = Not at all Becoming easily annoyed or irritable: 0 = Not at all Feeling afraid as if something awful might happen: 0 = Not at all Total SILVINA-7 score (0-4 normal; 5-9 mild; 10-14 moderate; 15-21 severe): 0 Source: Developed by Drs. Aguilar Ambrosio, Angely Wadsworth, Francois Barroso and colleagues, with an educational mattie from [email or web address]. SILVINA-7 Assessment Billing SILVINA-7 Assessment Tool: SILVINA-7 Assessment 66146 Review of Systems Narrative Review of Systems - Constitutional: Reports feeling much better with more energy and being up all day since starting CPAP therapy. - Cardiovascular: Denies chest pain or shortness of breath with activities like climbing stairs. - Neurological: Reports a history of intermittent tingling in the feet which has occurred less frequently in the past couple of weeks. - Integumentary: Reports a stable, non-growing lesion on the chest and the appearance of small white dots on the hands. Const All systems reviewed & are unremarkable except as noted in HPI and below Physical exam (Primary Care) Vital Signs: Last Vital Signs Temp 97.1 F 03/12/25 14:23 Pulse 107 H 03/12/25 14:23 BP 110/58 L 03/12/25 14:23 Pulse Ox 95 03/12/25 14:23 Care Plan Goal for BP management: <140/90 at Goal BMI result Body Mass Index 27.5 BMI Assessment/Plan discussion: High BMI High, discussed plan: lifestyle, weight reduction, dietary, physical activity, alcohol moderation and other Tobacco/Smoking Status: Tobacco use Status Tobacco use date assessed 10/16/24 03/12/25 14:29 Patient Tobacco Use Status Never used Tobacco 03/12/25 14:29 PHQ-9: PHQ-9 Score PHQ-9: Total score 0 03/12/25 14:29 Depression Screening Interpretation: Negative Thrive Assessment: Date of Thrive Assessment Date Thrive assessed 08/07/24 03/12/25 14:29 Narrative Physical Exam Appearance: Alert. Oriented X3. No acute distress. Head: Normal external exam. Normocephalic. Atraumatic. Eyes: Pupils are equal, round, and reactive to light. Extraocular movements intact. Conjunctiva and sclera normal. Eyelids normal. Ears: External auditory canal normal. Tympanic membranes normal. Throat: Pharynx normal. Uvula midline. Moist mucous membranes. Neck: Normal inspection. Neck supple. Full range of motion. No adenopathy. Thyroid Normal. No meningeal signs. No neck mass noted. Cardiovascular: Tachycardia noted. Normal heart rate and rhythm otherwise. Heart sound normal. murmur noted. Pulses normal throughout. Respiratory: No respiratory distress. Painless inspiration. Breath sounds normal. No wheezes/rales/rhonchi noted. Chest nontender. No accessory muscle usage noted or decreased air movement noted. Abdomen: Soft and nontender. Bowel sounds normal in all 4 quadrants. No distention noted. No organomegaly noted. No visible injury noted. Back: No costovertebral angle tenderness. Full range of motion noted. Skin: Skin warm and dry. Normal skin color. Normal skin turgor. No rashes/lesions/lacerations noted. Extremities: No lower extremity edema. Extremities exhibit normal range of motion. Extremities nontender. Neuro: Oriented X 3. No motor deficit. No sensory deficit. Reflexes normal. Office Procedures EKG Details: EKG sinus tachycardia with a ventricular rate of 107 no acute ischemic changes. No STEMI. Normal LA interval. Normal QRS duration. Normal QT. Normal QTC interval. Reviewed by myself and Dr. De Luna. [id number], Complete Flu Questionnaire Does the patient have a severe egg allergy?: No Does the patient have severe life threatening allergies?: No Does the patient have a fever or illness today?: No Has the patient ever had Guillain-Belvue Syndrome?: No Has the patient ever had any past reaction to a flu shot?: No Immunizations Fluarix [id number] (PF) 45 mcg (15 mcg x 3)/0.5 mL IM syringe Performing Provider: Angelina Montes PA-C Performing Location: [facility] [place] [facility] Documented (not given) by: Rody Hernandez on 03/12/25 14:30 Reason Not Given: Received Previously Results Reviewed Results Reviewed: Results - Labs from July 2022: CBC normal, inflammatory marker negative, kidney function normal, fasting glucose 117, A1c 5.1, Magnesium normal, liver enzymes normal, CRP normal, Total cholesterol 177 mg/dL, LDL 119 mg/dL, Triglycerides 106 mg/dL, Total PSA normal, Vitamin B12, Vitamin D, folate, and thyroid levels normal. - EKG: Showed sinus tachycardia, with no evidence of atrial fibrillation. - Recent Colonoscopy: A 10 mm polyp was found and removed; pathology was negative for cancer. Coding Level of Care Code Est Pt Level 4 (65015) Est Pt Prev Care 40-64y(02545) Diagnoses Annual physical exam Z00.00 Hypertension I10 Hypercholesteremia E78.00 Prediabetes R73.03 Colonic polyp K63.5 Family history of cardiovascular disease Z82.49 Peripheral neuropathy G62.9 Heart murmur R01.1 Tachycardia R00.0 CPT Codes EKG - CPT: 49509-[id number], Complete ([id number]) Additional Codes SILVINA-7 Assessment Billing - SILVINA-7 Assessment Tool: SILVINA-7 Assessment 44564 ([id number]) PHQ-9 - 30250 - PHQ-9 Billing: Yes ([id number]) Time Spent (min) 60 Assessment & Plan Assessment & Plan (1) Annual physical exam: Code(s): Z00.00 - Encounter for general adult medical examination without abnormal findings Category: Medical Plan: A urinalysis will be performed to check for proteinuria or glucosuria. A referral to dermatology will be placed for a full-body skin examination due to the presence of multiple freckles and a stable lesion on the chest. The patient will follow up in six months to monitor blood pressure and overall health status. (2) Hypertension: Code(s): I10 - Essential (primary) hypertension Category: Medical Plan: The patient's blood pressure is well-controlled on lisinopril 10 mg, with recent readings around 110/58 mmHg, likely secondary to improved sleep with CPAP and weight loss. The patient was advised to monitor blood pressure at home and, if it remains consistently low, to reduce the lisinopril dose to 5 mg (half a pill) and inform the office. (3) Hypercholesteremia: Code(s): E78.00 - Pure hypercholesterolemia, unspecified Category: Medical Plan: The patient is on a statin medication and reports that recent labs from the [place] showed normal cholesterol levels. The patient was instructed to continue the statin and to provide a copy of the [facility] lab results for the record. (4) Prediabetes: Code(s): R73.03 - Prediabetes Category: Medical Plan: The patient's fasting glucose was elevated at 117 in July. Dietary counseling was provided, advising the patient to reduce intake of sugars, including carbohydrates like pasta and bread. A urinalysis is planned to rule out glucosuria and proteinuria. (5) Colonic polyp: Comment: Removed by Dr. Garcia on 02/21/2025 patient will need 3-4 year follow-up colonoscopy Code(s): K63.5 - Polyp of colon Category: Medical Plan: A recent colonoscopy revealed a 10 mm polyp which was removed and found to be benign. Due to the size of the polyp, a follow-up colonoscopy is recommended in 3 to 4 years. (6) Family history of cardiovascular disease: Code(s): Z82.49 - Family history of ischemic heart disease and other diseases of the circulatory system Category: Medical Plan: Given the patient's strong family history of heart disease and current presentation with tachycardia, a further cardiac workup is warranted. An echocardiogram and a stress test will be ordered to assess cardiac structure and function. The hospital will contact the patient to schedule these tests. (7) Peripheral neuropathy: Code(s): G62.9 - Polyneuropathy, unspecified Category: Medical Plan: The patient reports intermittent tingling in the feet, which has improved since starting CPAP therapy. As the symptoms are not currently bothersome and have decreased in frequency, no new medication will be initiated at this time. (8) Heart murmur: Code(s): R01.1 - Cardiac murmur, unspecified Category: Medical Plan: Given the patient's strong family history of heart disease and current presentation with heart murmur, tachycardia, a further cardiac workup is warranted. An echocardiogram and a stress test will be ordered to assess cardiac structure and function. The hospital will contact the patient to schedule these tests. (9) Tachycardia: Code(s): R00.0 - Tachycardia, unspecified Category: Medical Plan: Given the patient's strong family history of heart disease and current presentation with heart murmur, tachycardia, a further cardiac workup is warranted. An echocardiogram and a stress test will be ordered to assess cardiac structure and function. The hospital will contact the patient to schedule these tests. Plan Plan Patient was informed and verbally consented to the use of an ambient scribe for clinic note documentation during this visit. 1. Annual Physical Examination/Health Maintenance A urinalysis will be performed to check for proteinuria or glucosuria. A referral to dermatology will be placed for a full-body skin examination due to the presence of multiple freckles and a stable lesion on the chest. The patient will follow up in six months to monitor blood pressure and overall health status. 2. Essential Hypertension The patient's blood pressure is well-controlled on lisinopril 10 mg, with recent readings around 110/58 mmHg, likely secondary to improved sleep with CPAP and weight loss. The patient was advised to monitor blood pressure at home and, if it remains consistently low, to reduce the lisinopril dose to 5 mg (half a pill) and inform the office. 3. Hyperlipidemia The patient is on a statin medication and reports that recent labs from the [place] showed normal cholesterol levels. The patient was instructed to continue the statin and to provide a copy of the [facility] lab results for the record. 4. Prediabetes The patient's fasting glucose was elevated at 117 in July. Dietary counseling was provided, advising the patient to reduce intake of sugars, including carbohydrates like pasta and bread. A urinalysis is planned to rule out glucosuria and proteinuria. 5. History Of Colon Polyp A recent colonoscopy revealed a 10 mm polyp which was removed and found to be benign. Due to the size of the polyp, a follow-up colonoscopy is recommended in 3 to 4 years. 6. Family History Of Cardiovascular Disease Given the patient's strong family history of heart disease and current presentation with tachycardia, a further cardiac workup is warranted. An echocardiogram and a stress test will be ordered to assess cardiac structure and function. The hospital will contact the patient to schedule these tests. 7. Peripheral Neuropathy The patient reports intermittent tingling in the feet, which has improved since starting CPAP therapy. As the symptoms are not currently bothersome and have decreased in frequency, no new medication will be initiated at this time. 8. Heart Murmur Given the patient's strong family history of heart disease and current presentation with heart murmur, tachycardia, a further cardiac workup is warranted. An echocardiogram and a stress test will be ordered to assess cardiac structure and function. The hospital will contact the patient to schedule these tests. Discussion Notes I reviewed the patient's recent lab results and health history during this annual physical visit. We discussed the patient's prediabetic state, and I provided counseling on dietary modifications to reduce sugar and carbohydrate intake. We talked about the patient's well-controlled blood pressure and the possibility of reducing the lisinopril dosage if home readings remain low. I reassured the patient that the colon polyp found was benign but explained the need for a follow-up colonoscopy in 3-4 years due to its size. Given the patient's strong family history of heart disease and presentation with tachycardia, I recommended further cardiac evaluation. We will proceed with ordering an echocardiogram and a stress test to assess cardiac health more thoroughly. I also recommended a referral to dermatology for a full-body skin exam as a preventative measure due to the patient's numerous freckles. We agreed on a follow-up visit in six months to re-evaluate blood pressure and overall progress. Orders: Orders Influenza [id number] Immunization Today Z23 - Encounter for immunization CA echo transthoracic complete Today E78.00 - Pure hypercholesterolemia, unspecified, I10 - Essential (primary) hypertension, R00.0 - Tachycardia, unspecified, R01.1 - Cardiac murmur, unspecified CA stress test Today E78.00 - Pure hypercholesterolemia, unspecified, I10 - Essential (primary) hypertension, R00.0 - Tachycardia, unspecified, R01.1 - Cardiac murmur, unspecified NM cardiolite stress test Today E78.00 - Pure hypercholesterolemia, unspecified, I10 - Essential (primary) hypertension, R00.0 - Tachycardia, unspecified, R01.1 - Cardiac murmur, unspecified Referrals Dermatology Referral L81.2 - Freckles, L98.9 - Disorder of the skin and subcutaneous tissue, unspecified Patient Instructions: Patient Instructions - Monitor your blood pressure at home. - If your blood pressure is consistently low (around 110/58), you can cut your lisinopril 10 mg pill in half and take that dose instead. - Please let our office know if you decide to lower your medication dose. - Watch your intake of sugary foods and carbohydrates like pasta, breads, and crackers. - You will be getting a heart ultrasound (echocardiogram) and a stress test. - The hospital should call you within a month to schedule these tests; please contact us if you do not hear from them. - We will refer you to a child attendant for a full-body skin check. - Remember to schedule your follow-up colonoscopy in 3 to 4 years. - [facility]. - Schedule a follow-up appointment in our office in six months.
== END 2025-03-12 15:06 | disposition home or self-care (01) ==
LOC: HO.HMCSH 14:16
PROVIDERS: PCP Physician Assistant Medical; Visit Provider Physician Assistant Medical
DX: Z00.00 Encounter for general adult medical examination without abnormal findings (principal); I10 Essential (primary) hypertension; E78.00 Pure hypercholesterolemia, unspecified; R73.03 Prediabetes; K63.5 Polyp of colon; Z82.49 Family history of ischemic heart disease and other diseases of the circulatory system; G62.9 Polyneuropathy, unspecified; R01.1 Cardiac murmur, unspecified; R00.0 Tachycardia, unspecified; Z23 Encounter for immunization

== ENCOUNTER → 2025-03-12 14:16 | Outpatient (BNVA) | payer BC, SELFPAY | PROVIDERS: PCP Physician Assistant Medical; Visit Provider Physician Assistant Medical | DX: Z00.00 Encounter for general adult medical examination without abnormal findings (principal); Z28.89 Immunization not carried out for other reason; I10 Essential (primary) hypertension; E78.00 Pure hypercholesterolemia, unspecified; R73.03 Prediabetes; K63.5 Polyp of colon; G62.9 Polyneuropathy, unspecified; R01.1 Cardiac murmur, unspecified; R00.0 Tachycardia, unspecified; Z82.49 Family history of ischemic heart disease and other diseases of the circulatory system | CPT/HCPCS: 90471; 93005; 96127 ==